=== PATIENT | female | born 1960 | race Caucasian/White ===

== ENCOUNTER 2024-07-07 02:08 | Emergency (ER) | payer OTHER ==
[~2024-07-07] VITALS: Ht 157.5 cm; Wt 61.2 kg
[2024-07-07 02:21] VITALS: O2SAT 99
[2024-07-07] MEDS: LIDOCAINE HCL/PF 1% 10 MG/ML 5ML VIAL INFIL ONE (04:02)
[2024-07-07] MEDS: BACITRACIN ZINC OINT UDPKT TOP ONE (04:02)
[2024-07-07] MEDS: TETANUS, DIPHTHERIA, PERTUSSIS VAC/PF 0.5ML (>10YR OLD) IM ONE (04:04)
[2024-07-07 04:25] VITALS: BP 129/58; PULSE 79; RESP 18; TEMP 37; O2SAT 100
== END 2024-07-07 04:27 | disposition home or self-care (01) ==
LOC: ER 02:24
DX: S01.81XA Laceration without foreign body of other part of head, initial encounter (principal); E11.9 Type 2 diabetes mellitus without complications; E78.00 Pure hypercholesterolemia, unspecified; W22.8XXA Striking against or struck by other objects, initial encounter; Y93.89 Activity, other specified; Y92.89 Other specified places as the place of occurrence of the external cause; Y99.8 Other external cause status
CPT/HCPCS: 99283; 90715; 12011; 90471; J2003